=== PATIENT | female | born 1955 | race Caucasian/White ===

== ENCOUNTER 2025-07-27 11:20 | Outpatient (AMB) | payer MEDICARE, SELFPAY ==
--- NOTE | 2025-07-27 11:25 | MHC.OFFVIS ---
Intake Visit Reasons: 6m Allergies No Known Allergies Allergy (Verified 07/26/25 11:39) HPI Comments Details: 69 years old right-handed woman with past medical history of cervical spine surgery many years ago who lost her balance and fell forward around 2021. Top of her head struck something and she had large laceration requiring erasto. Right after that she noted the pain in both arms going to her hands. Pain was aching and burning type and present all the time. She has tried taking gabapentin, which did not help. She was given a prescription for duloxetine to try. She is presenting with bilateral hand and arm numbness, particularly nocturnal, leading to sleep disturbances. She reports awakening with numbness, often linked to sleeping on her side. The discomfort lessens with less arm activity during the day. Previous interventions, including a wrist injection, have been ineffective. Diagnosed with carpal tunnel syndrome, testing corroborated hand-related symptoms, with a history of neck surgery more than two decades ago. A dual factor possibly influences her symptoms, insinuating a double crush phenomenon. The patient is unwilling to undergo surgery absent effective conservative avenues, like nighttime wrist splints, which she has not used. [facility] Medical History (Updated 07/27/25 @ 11:28 by Tico Andrews MD) Carpal tunnel syndrome Cervical spondylitic cord compression Review of Systems Const Details: - Neurological: Reports numbness in both arms and hands, particularly at night. - Musculoskeletal: Reports bilateral arm pain, particularly after strenuous activity. - No other systems were discussed. Physical Exam Neuro Other: Mental Status: Alert and oriented to person, place, and time. Normal attention. Normal spontaneous speech, fluency, and comprehension. Cranial Nerves: CN II: Visual thomas full to confrontation, visual acuity intact. CN III, IV, : Pupils equal, round, reactive to light and accommodation. Extraocular movements are normal. CN V: Facial sensation is normal. CN VII: Facial movements symmetrical. CN VIII: Hearing intact to bedside conversation is normal. CN IX, X: Palate elevates symmetrically. CN XI: Shoulder shrug and head turn symmetrical. CN XII: Tongue midline without atrophy or fasciculations. Motor: Bulk and tone normal in all extremities. No significant muscle weakness in arms and legs. No drift. Reflexes: Deep tendon reflexes 2+ and symmetric. Plantar response down-going bilaterally. Coordination: Vrcbor-pd-ifsp and jyda-ph-ioxs testing normal. No dysmetria. Gait and Station: No obvious gait abnormality. No ataxia or instability. Sensory: Intact to light touch, pinprick, and vibration. Romberg is negative. Extrapyramidal: Full facial expressions and blinking. No rigidity. Movements are appropriate with no tremor or abnormality. Speech: Normal; no dysarthria or tremor. Assessment & Plan Assessment & Plan (1) Cervical spondylitic cord compression: Code(s): M47.12 - Other spondylosis with myelopathy, cervical region Category: Medical (2) Neuropathic pain: Comment: Meds tried: Gabapentin, duloxetine NCV/EMG UE (in office) Mild to moderate left and mild right median neuropathy across the Carpal tunnel. 10/07/24. Code(s): M79.2 - Neuralgia and neuritis, unspecified Category: Medical Plan I discussed with the patient the likely presence of bilateral carpal tunnel syndrome as the primary cause of her nocturnal arm and hand numbness. Despite previous wrist injection therapy, there remains a need for effective management, with wrist splinting indicated as the immediate step. The patient agreed to trial nighttime wrist splints. Regarding her history of neck surgery, I emphasized the possibility of a contributory process, potentially a double crush syndrome. To rule out significant cervical involvement and guide treatment further, I recommended obtaining a cervical MRI, which the patient agreed to pending confirmation of MRI compatibility. A future evaluation for potential surgical intervention was proposed should conservative therapies prove ineffective, emphasizing the low invasiveness of the surgical approach. Follow-up will depend on the outcome of the conservative measures and MRI findings. Orders: Orders MR cervical spine wo con Today M47.12 - Other spondylosis with myelopathy, cervical region Coding Level of Care Code Est Pt Level 4 (18785) Diagnoses Cervical spondylitic cord compression M47.12 Neuropathic pain M79.2
== END 2025-07-27 11:37 | disposition home or self-care (01) ==
LOC: HO.HSM 11:20
PROVIDERS: PCP Internal Medicine; Visit Provider Psychiatry & Neurology Neurology
DX: M47.12 Other spondylosis with myelopathy, cervical region (principal); M79.2 Neuralgia and neuritis, unspecified
CPT/HCPCS: 99214

== ENCOUNTER → 2025-07-27 11:20 | Outpatient (BNVA) | payer MEDICARE, SELFPAY | PROVIDERS: PCP Internal Medicine; Visit Provider Psychiatry & Neurology Neurology | DX: M47.12 Other spondylosis with myelopathy, cervical region (principal); M79.2 Neuralgia and neuritis, unspecified | CPT/HCPCS: 99212 ==

== ENCOUNTER → 2025-09-18 09:03 | Outpatient (BNV) | payer MEDICARE, SELFPAY | PROVIDERS: PCP Internal Medicine; Visit Provider General Practice | DX: M47.12 Other spondylosis with myelopathy, cervical region (principal); M50.30 Other cervical disc degeneration, unspecified cervical region | CPT/HCPCS: 72141 ==

== ENCOUNTER 2025-09-18 09:10 | Outpatient (REF) | payer MEDICARE, SELFPAY ==
--- NOTE | ~2025-09-18 | MR_ITS ---
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 Metallic artifact degrades images limiting interpretation. There is straightening of the normal cervical lordosis. Multilevel degenerative changes are present: C2-C3: No significant central canal or neural foraminal narrowing. C3-C4: Broad-based disc osteophyte complex. Borderline mild central canal stenosis. Mild left neural foraminal narrowing. No significant right neural foraminal stenosis. C4-C5: Broad-based disc osteophyte. Mild central canal narrowing. Moderate bilateral neural foraminal stenosis C5-C6: Limited by metallic artifact. C6-C7 and C7-T1: No significant central canal or neural foraminal narrowing. No acute fractures or pathologic bone lesions. Visualized intracranial contents are unremarkable. No cervical fluid collections or masses. Small focus of T2 bright cord signal intensity is present at the level of C3-C4. Remainder of the cervical cord is normal in size and signal intensity. Cervical vertebral body heights are moderately well-maintained. Visualized posterior fossa structures are unremarkable. Craniocervical junction is within normal limits. IMPRESSION: Small focus of T2 bright central cord signal intensity at C3-C4, likely focal gliosis. Multilevel cervical spine degenerative changes as above. This document has been electronically signed by: Ck Miller MD, PHD on 09/21/2025 04:37:37
--- OUTSIDE RECORDS SUMMARY | 2025-09-18 09:15 | XMS_ITS | Encounter Summary ---
Author Organization [facility] Prior to 08/13/2024 Address [address] [place] [address] Care Team Providers Care [employer] Hazmat Tanker Driver Name Role Phone Loren Vivar MD Primary Care Provide r Unavailable Jude Simeon DO Primary Care Provider UnavailWyatt Crook MD Unavailable [phone] Farhana Deluna MD Primary Care Provider [phone] Reason for Visit * Reason Onset Date Comments Shoulder Arthritis 08/23/2021 Encounter Details Date Type Department Care Team Description 08/23/2021 Telephone Adult [facility] - [address] [place] [address] Loren Vivar MD Shoulder Arthritis Social History Tobacco Use Types Packs/Day Years Used Date Smoking Tobacco: Every Day Cigarettes 1 45 Smokeless Tobacco: Never Alcohol Use Standard Drinks/Week Comments Yes 0 (1 standard drink = 0.6 oz pur e alcohol) social Alcohol Habits Answer Date Recorded How often do you have a drink containing alcohol ? 2-3 times a week 12/12/2022 How many drinks containing a lcohol do you have on a typical day when you are drinking? 1 or 2 12/12/2022 How often do you have six or more drinks on one occasion? Never 12/12/2022 Social Isolation Answer Date Recorded In a typical week, how many times do you talk on the phone with family, friends, or neighbors? More than three times a week 12/12/2022 How often do you get togethe r with friends or relatives? More than three times a week 12/12/2022 How often do you attend [facility] or yazdanism services? Never 12/12/2022 Do you belong to any clubs o r organizations such as baptist groups, unions, fraternal or athletic groups, or school groups? No 12/12/2022 How often do you attend meet ings of the clubs or organizations you belong to? Never 12/12/2022 Are you now , , , , never or living with a partner? 12/12/2022 Physical Activity Answer Date Recorded On average, how many days pe r week do you engage in moderate to strenuous exercise (like walking fast, running, jogging, dancing, swimming, biking, or other activities that cause a light or heavy sweat)? 7 days 12/12/2022 On average, how many minutes do you engage in exercise at this level? 30 min 12/12/2022 Stress Answer Date Recorded Do you feel stress - tense, restless, nervous, or anxious, or unable to sleep at night because your mind is troubled all the time - these days? Not at all 12/12/2022 Financial Resource Strain Answer Date R ecorded How hard is it for you to pa y for the very basics like food, housing, medical care, and heating? Not hard at all 12/12/2022 Food Insecurity Answer Date Recorded Within the past 12 months, y ou worried that your food would run out before you got money to buy more. Never true 12/12/2022 Within the past 12 months, t he food you bought just didn't last and you didn't have money to get more. Never true 12/12/2022 Transportation Needs Answer Date Record ed In the past 12 months, has l ack of transportation kept you from medical appointments or from getting medications? No 11/2022 In the past 12 months, has l ack of transportation kept you from meetings, work, or getting things needed for daily living? No 12/12/2022 Housing Stability Answer Date Recorded In the last 12 months, was t here a time when you were not able to pay the mortgage or rent on time? No 12/12/2022 In the last 12 months, how many places have you lived? 1 12/12/2022 In the last 12 months, was t here a time when you did not have a steady place to sleep or slept in a skilled nursing (including now)? No 12/12/2022 Sex Assigned at Date Recorded Not on file Job Start Date Occupation Industry Not on file Not on file Not on file documented as of this encounter Miscellaneous Notes * Telephone Encounter - Kira Melgar L.P.N. - 08/23/2021 11:03 AM EST Patient c/o r shoulder Patient states she threw something into compactor, but continues with pain, feels like it is in herjoint Requesting an evaluation Appointment scheduled 08/24 * Telephone Encounter - [place] - 08/23/2021 10:37 AM EST Symptoms patient is presenting: pt calling stating she injured shoulder three weeks ago pt is stillin pain For ALL patients calling to schedule any appointment (routine, sick visit, follow up, consult, etc.) in the outpatient setting please ask the following questions: ?? Do you have fever of higher than 101, sore throat with difficulty swallowing or severe shortnessof breath? NO If YES to any of these above symptoms, send a message to triage and do not book. Red dot. If no, an audio or video visit should be booked. ?? Have you had close contact with someone with Coronavirus in the last 14 days? NO ?? Have you traveled abroad? NO ?? Have you traveled recently to another state outside of [place], [place], [place], [place], [place], [place], [place]? NO o If yes, did you quarantine for 14 days or have a negative covid test? NO If yes to any of the above, patient is not to be scheduled in office until after 14 day quarantine or negative covid test. If pain or injury related was it due to an accident at work or from a motor vehicle accident? NO If yes, gather 3rd alliance party insurance information Date of accident/Injury: How long has patient had these symptoms?: PCP: LOREN VIVAR Payor: [employer] / Plan: O $15 [place] [id number] / Product Type: PPO [id number] documented in this encounter Plan of Treatment Not on file documented as of this encounter Visit Diagnoses Not on filedocumented in this encounter Care Teams Regional Company Hazmat Tanker Driver Relationship Specialty Start Date End Date Loren Vivar MD PCP - General Internal Medicine 06/25/21 1 11/28/20 Jude Simeon DO PCP - General Internal Medicine 09/28/21 04/18/24 Farhana Deluna MD [address] [place] [address] PCP - General Internal Medicine 04/19/24 Wyatt Nascimento MD [address] [place] [address] ORTHOPEDIC SURGERY 12/12/22 04/18/24 documented as of this encounter
--- OUTSIDE RECORDS SUMMARY | 2025-09-18 09:15 | XMS_ITS | Encounter Summary ---
Author Organization [facility] Prior to 08/13/[address] [place] [address] Care Team Providers Care Home Energy Consultant Name Role Phone Jude Simeon DO Primary Care Provider Wyatt Barton MD Unavailable [phone] Farhana Deluna MD Primary Care Provider [phone] Reason for Visit * Reason Onset Date Comments Surgery (Schedule) 06/20/2022 [facility] phone Encounter Details Date Type Department Care Team Description 06/20/2022 Telephone [facility] [address] [phone] Wyatt Nascimento MD [address] [place] [address] Surgery (Schedule) ([facility] phone) Social History Tobacco Use Types Packs/Day Years [...] week 12/12/2022 How often do you attend chur ch or presybeterian services? Never 12/12/2022 Do you belong to any clubs o r organizations such as roman catholic groups, unions, fraternal or athletic groups, or [...] place to sleep or slept in a mcfp (including now)? No 12/12/2022 Sex Assigned at Date Recorded Not on file Job Start Date Occupation Industry Not on file Not on file Not on file COVID-19 Exposure Response Date Recorded In the last 10 days, have yo u been in contact with someone who was confirmed or suspected to have Coronavirus/COVID-19? No / Unsure 06/19/2022 8:49 AM EDT documented as of this encounter Miscellaneous Notes * Telephone Encounter - Lillian Bello - 06/27/2022 10:25 AM EDT PA for surgery request faxed over to Tj at [facility]. Sent to fax: [phone]. * Telephone Encounter - Lillian Bello - 06/26/2022 1:54 PM EDT LMOM requesting a call back from Tj Munoz at [facility] with fax number to request PA for surgery. * Telephone Encounter - Lillian Bello - 06/20/2022 8:25 AM EDT Spoke with patient. Asked for [facility] case coordinator's phone number. Patient to call me back with information. As soon as we get this we can send request for approval for surgery. documented in this encounter Plan of Treatment Not on file documented as of this encounter Visit Diagnoses Not on filedocumented in this encounter Care Teams Home Energy Consultant Relationship Specialty Start Date End Date Jude Simeon DO PCP - General Internal Medicine 09/28/21 04/18/24 Farhana Deluna MD [address] [place] [address] PCP - General Internal Medicine 04/19/24 Wyatt Nascimento MD [address] [place] [address] ORTHOPEDIC SURGERY 12/12/22 04/18/24 documented as of this encounter
--- OUTSIDE RECORDS SUMMARY | 2025-09-18 09:15 | XMS_ITS | Encounter Summary ---
Author Organization [facility] Prior to 08/13/2024 Address [address] [place] [address] Care Team Providers Care Production Assembly Operator Name Role Phone Jude Simeon DO Primary Care Provider Wyatt Barton MD Unavailable [phone] Farhana Deluna MD Primary Care Provider [phone] Encounter Details Date Type Department Care Team Description 04/29/2022 [facility] - [facility] 175 [facility] [address] [place] [address] Angela Carrillo APRN Social History Tobacco Use Types Packs/Day Years [...] week 12/12/2022 How often do you attend [facility] or mosque services? Never 12/12/2022 Do you belong to any clubs o r organizations such as evangelical groups, unions, fraternal or athletic groups, or [...] place to sleep or slept in a fdc (including now)? No 12/12/2022 Sex Assigned at Date Recorded Not on file Job Start Date Occupation Industry Not on file Not on file Not on file COVID-19 Exposure Response Date Recorded In the last 10 days, have yo u been in contact with someone who was confirmed or suspected to have Coronavirus/COVID-19? No / Unsure 04/26/2022 8:02 AM EDT documented as of this encounter Plan of Treatment Not on file documented as of this encounter Visit Diagnoses Not on filedocumented in this encounter Care Teams Production Assembly Operator Relationship Specialty Start Date End Date Jude Simeon DO PCP - General Internal Medicine 09/28/21 04/18/24 Farhana Deluna MD [address] [place] [address] PCP - General Internal Medicine 04/19/24 Wyatt Nascimento MD [address] [address] ORTHOPEDIC SURGERY 12/12/22 04/18/24 documented as of this encounter
--- OUTSIDE RECORDS SUMMARY | 2025-09-18 09:15 | XMS_ITS | Encounter Summary ---
Author Organization [facility] Prior to 08/13/2024 Address [address] [place] [address] Care Team Providers Care Mechanical Technician Name Role Phone Nela Robledo MD Primary Care Provider Unavailable Loren Peña MD Primary Care Provide r Unavailable Jude Simeon DO Primary Care Provider UnavailWyatt Crook MD Unavailable [phone] Farhana Deluna MD Primary Care Provider [phone] Reason for Visit * Reason Comments E-prescribe Rx Request Encounter Details Date Type Department Care Team Description 12/15/2020 Refill Adult Medicine [address] [address] Nela Robledo MD E-prescribe Rx Request Social History Tobacco Use Types Packs/Day Years [...] often do you attend chur ch or sikhism services? Never 12/12/2022 Do you belong to any clubs o r organizations such as druze groups, unions, fraternal or athletic groups, or [...] place to sleep or slept in a group home (including now)? No 12/12/2022 Sex Assigned at Date Recorded Not on file Job Start Date Occupation Industry Not on file Not on file Not on file documented as of this encounter Miscellaneous Notes * Telephone Encounter - Feli Farmer - 12/15/2020 12:09 PM EST Patient would like script to be: E-PRESCRIBED/FAXED TO PHARMACY WHEN WAS THE PATIENT'S LAST APPOINTMENT IN ADULT MEDICINE? 07/03/20 WHEN WAS THE LAST TIME THE PATIENT SAW THEIR PCP? Same as above Does patient have an upcoming appointment? No-unable to reach left [facility] to call for appointment due to refill request. Appt due 10/02/21 (THE MEDICATION REQUESTED IS ON THE MED LIST ABOVE) All of the medications requested were on the CURRENT MEDS list Did you check the Pharmacy information above?: YES Patient wants: 30 -day supply Is this a mail order prescription request ? NO If the refill is from a FAXED refill request what is the RX # listed on the fax? N/A Patients current insurance carrier is: Payor: [employer] / Plan: [facility]PO [facility] [id number] / Product Type: POS [id number]-Eydrnps documented in this encounter Plan of Treatment Not on file documented as of this encounter Visit Diagnoses Not on filedocumented in this encounter Care Teams Mechanical Technician Relationship Specialty Start Date End Date Chapin-Nela Vincent MD PCP - General Internal Medicine 11/22/1510/02 Loren Peña MD PCP - General Internal Medicine 06/25/21 1 11/28/20 Jude Simeon DO PCP - General Internal Medicine 09/28/21 04/18/24 Farhana Deluna MD [address] [place] [address] PCP - General Internal Medicine 04/19/24 Wyatt Nascimento MD [address] [place] [address] ORTHOPEDIC SURGERY 12/12/22 04/18/24 documented as of this encounter
--- OUTSIDE RECORDS SUMMARY | 2025-09-18 09:15 | XMS_ITS | Encounter Summary ---
Author Organization [facility] Prior to 08/13/2024 Address [address] [place] [address] Care Team Providers Care Fall Internship Name Role Phone Nela Robledo MD Primary Care Provider Unavailable Loren Peña MD Primary Care Provide r Unavailable Jude Simeon DO Primary Care Provider UnavailWyatt Crook MD Unavailable [phone] Farhana Deluna MD Primary Care Provider [phone] Encounter Details Date Type Department Care Team Description 10/27/2020 Orders Only Medical Records [address] [place] [address] Nela Robledo MD Social History Tobacco Use Types Packs/Day Years [...] week 12/12/2022 How often do you attend [facility] or cheondoism services? Never 12/12/2022 Do you belong to any clubs o r organizations such as rastafarian groups, unions, fraternal or athletic groups, or [...] place to sleep or slept in a custodial (including now)? No 12/12/2022 Sex Assigned at Date Recorded Not on file Job Start Date Occupation Industry Not on file Not on file Not on file documented as of this encounter Plan of Treatment Not on file documented as of this encounter Procedures Procedure Name Priority Date/Time Associated Diagnosis Comments OUTSIDE MAMMO Routine 10/27/2020 documented in this encounter Results * OUTSIDE MAMMO (10/27/2020) Nela Robledo MD RADIOLOGY documented in this encounter Visit Diagnoses Not on filedocumented in this encounter Care Teams Fall Internship Relationship Specialty Start Date End Date Nela Robledo MD PCP - General Internal Medicine 11/22/1510/02 Loren Peña MD PCP - General Internal Medicine 06/25/21 1 11/28/20 Jude Simeon DO PCP - General Internal Medicine 09/28/21 04/18/24 Farhana Deluna MD [address] [place] [address] PCP - General Internal Medicine 04/19/24 Wyatt Nascimento MD [address] [place] [address] ORTHOPEDIC SURGERY 12/12/22 04/18/24 documented as of this encounter
--- OUTSIDE RECORDS SUMMARY | 2025-09-18 09:15 | XMS_ITS | Encounter Summary ---
Author Organization [facility] Prior to 08/13/2024 Address [address] [place] [address] Care Team Providers Care Multimedia Specialist Name Role Phone Pickford-Nela Vincent MD Primary Care Provider Unavailable Loren Peña MD Primary Care Provide r Unavailable Jude Simeon DO Primary Care Provider UnavailWyatt Crook MD Unavailable [phone] Farhana Deluna MD Primary Care Provider [phone] Encounter Details Date Type Department Care Team Description 11/20/2020 Infrastructure Administrator Report Medical Records [address] [place], [place] [address] [place] [address] Social History Tobacco Use Types Packs/Day Years [...] week 12/12/2022 How often do you attend [facility] or protestant services? Never 12/12/2022 Do you belong to any clubs o r organizations such as restoration groups, unions, fraternal or athletic groups, or [...] on filedocumented in this encounter Care Teams Multimedia Specialist Relationship Specialty Start Date End Date Pickford-Nela Vincent MD PCP - General Internal Medicine 11/22/1510/02 Loren Peña MD PCP - General Internal Medicine 06/25/21 1 11/28/20 Jude Simeon DO PCP - General Internal Medicine 09/28/21 04/18/24 Farhana Deluna MD [address] [place] [address] PCP - General Internal Medicine 04/19/24 Wyatt Nascimento MD [address] [place] [address] ORTHOPEDIC SURGERY 12/12/22 04/18/24 documented as of this encounter
--- OUTSIDE RECORDS SUMMARY | 2025-09-18 09:15 | XMS_ITS | Encounter Summary ---
Author Organization [facility] Prior to 08/13/2024 Address [address] [place] [address] Care Team Providers Care Underwriting Sales Representative Name Role Phone Farhana Deluna MD Primary Care Provider [phone] Encounter Details Date Type Department Care Team Description 08/03/2024 Type Bar And Segment Assembler Report Medical Records [address] [place] [address] [facility] [address] [place] [address] Social History Tobacco Use Types Packs/Day Years [...] often do you attend chur ch or methodist services? Never 12/12/2022 Do you belong to any clubs o r organizations such as protestant groups, unions, fraternal or athletic groups, or [...] place to sleep or slept in a fci (including now)? No 12/12/2022 Sex Assigned at Date Recorded Not on file Job Start Date Occupation Industry Not on file Not on file Not on file documented as of this encounter Plan of Treatment Not on file documented as of this encounter Visit Diagnoses Not on filedocumented in this encounter Care Teams Underwriting Sales Representative Relationship Specialty Start Date End Date Farhana Deluna MD [address] [place] [address] PCP - General Internal Medicine 04/19/24 documented as of this encounter
--- OUTSIDE RECORDS SUMMARY | 2025-09-18 09:16 | XMS_ITS | Encounter Summary ---
Author Organization [facility] Prior to 08/13/2024 Address [facility] [place] [address] Care Team Providers Care First Line Supervisor Name Role Phone Jude Simeon DO Primary Care Provider Wyatt Barton MD Unavailable [phone] Farhana Deluna MD Primary Care Provider [phone] Reason for Visit * Reason Onset Date Comments Medication 07/07/2022 Planned Post-op Encounter Details Date Type Department Care Team Description 07/07/2022 Telephone [facility] Medical [facility] - [facility] 175 [facility] [address] [place] [phone] Angela Carrillo APRN Medication (Planned Post-op) Social History Tobacco Use Types Packs/Day Years [...] often do you attend chur ch or yarsanism services? Never 12/12/2022 Do you belong to any clubs o r organizations such as pentecostal groups, unions, fraternal or athletic groups, or [...] place to sleep or slept in a residential (including now)? No 12/12/2022 Sex Assigned at [...] on filedocumented in this encounter Care Teams First Line Supervisor Relationship Specialty Start Date End Date Jude Simeon DO PCP - General Internal Medicine 09/28/21 04/18/24 Farhana Deluna MD [address] [place] [address] PCP - General Internal Medicine 04/19/24 Wyatt Nascimento MD [address] [place] [address] ORTHOPEDIC SURGERY 12/12/22 04/18/24 documented as of this encounter
--- OUTSIDE RECORDS SUMMARY | 2025-09-18 09:16 | XMS_ITS | Encounter Summary ---
Author Organization [facility] Prior to 08/13/[address] [place] [id number] Care Team Providers Care Leather Cleaner Name Role Phone Jude Simeon DO Primary Care Provider Wyatt Barton MD Unavailable [phone] Farhana Deluna MD Primary Care Provider [phone] Encounter Details Date Type Department Care Team Description 09/04/2022 SCAN [facility] [address] [facility] [address] [place] [phone] Wyatt Nascimento MD [address] [facility] [address] [place] [address] Social History Tobacco Use Types Packs/Day Years [...] any clubs o r organizations such as denominational groups, unions, fraternal or athletic groups, or [...] suspected to have Coronavirus/COVID-19? No / Unsure 08/23/2022 8:17 AM EST documented as of this encounter Plan of Treatment Not on file documented as of this encounter Visit Diagnoses Not on filedocumented in this encounter Care Teams Leather Cleaner Relationship Specialty Start Date End Date Jude Simeon DO PCP - General Internal Medicine 09/28/21 04/18/24 Farhana Deluna MD [address] [place] [address] PCP - General Internal Medicine 04/19/24 Wyatt Nascimento MD [address] [place] [address] ORTHOPEDIC SURGERY 12/12/22 04/18/24 documented as of this encounter
--- OUTSIDE RECORDS SUMMARY | 2025-09-18 09:16 | XMS_ITS | Encounter Summary ---
Author Organization [facility] Prior to 08/13/2024 Address [address] [address] [place] [address] Care Team Providers Care Tester [employer] Name Role Phone Jude Simeon DO Primary Care Provider Wyatt Barton MD Unavailable [phone] Farhana Deluna MD Primary Care Provider [phone] Encounter Details Date Type Department Care Team Description 04/09/2023 Orders Only [facility] Lung Screening Program [place] [address] [facility] [address] [place] [phone] Sugar Mark MD [address] [facility] [place] [address] [place] [id number] History of tobacco abuse Social History Tobacco Use Types Packs/Day Years [...] any clubs o r organizations such as jehovah's witness groups, unions, fraternal or athletic groups, or [...] place to sleep or slept in a retirement (including now)? No 12/12/2022 Sex Assigned at Date Recorded Not on file Job Start Date Occupation Industry Not on file Not on file Not on file COVID-19 Exposure Response Date Recorded In the last 10 days, have yo u been in contact with someone who was confirmed or suspected to have Coronavirus/COVID-19? No / Unsure 04/09/2023 9:38 AM EDT documented as of this encounter Plan of Treatment Not on file documented as of this encounter Procedures Procedure Name Priority Date/Time Associated Diagnosis Comments CT LOW DOSE LUNG SCREEN ANNUAL Routine 04/08/2023 History of tobacco abuse documented in this encounter Results * CT LOW DOSE LUNG SCREEN ANNUAL (04/08/2023) Sugar Mark MD CT SCANS documented in this encounter Visit Diagnoses Diagnosis History of tobacco abuse Personal history of tobacco use, presenting hazards to health documented in this encounter Care Teams Tester [employer] Relationship Specialty Start Date End Date Jude Simeon DO PCP - General Internal Medicine 09/28/21 04/18/24 Farhana Deluna MD [address] [place] [address] PCP - General Internal Medicine 04/19/24 Wyatt Nascimento MD [address] [address] ORTHOPEDIC SURGERY 12/12/22 04/18/24 documented as of this encounter
--- OUTSIDE RECORDS SUMMARY | 2025-09-18 09:16 | XMS_ITS | Encounter Summary ---
Author Organization [facility] Prior to 08/13/2024 Address [address] [place] [address] Care Team Providers Care Fusing Machine Tender Name Role Phone Nela Robledo MD Primary Care Provider Unavailable Loren Peña MD Primary Care Provide r Unavailable Jude Simeon DO Primary Care Provider UnavailWyatt Crook MD Unavailable [phone] Farhana Deluna MD Primary Care Provider [phone] Reason for Visit * Reason Onset Date Comments medication problems 12/08/2019 Encounter Details Date Type Department Care Team Description 12/08/2019 Telephone Adult [facility] - [address] [address] Nela Robledo MD medication problems Social History Tobacco Use Types Packs/Day Years [...] often do you attend chur ch or confucianism services? Never 12/12/2022 Do you belong to any clubs o r organizations such as taoist groups, unions, fraternal or athletic groups, or [...] place to sleep or slept in a jail (including now)? No 12/12/2022 Sex Assigned at Date Recorded Not on file Job Start Date Occupation Industry Not on file Not on file Not on file documented as of this encounter Miscellaneous Notes * Telephone Encounter - Nilda Winters M.A. - 12/08/2019 3:09 PM EST Contacted pharmacy, they stated they have this in stock and pt has 2 refills on it left, pt was notified. * Telephone Encounter - Antonette Cormier - 12/08/2019 3:03 PM EST Who is calling? The patient Name of the medication hydrochlorothiazide (HYDRODIURIL) 25 MG tablet What is the specific problem or interaction? Pharmacy does not have this medication in stock needs an alternative sent. If the patient is having a problem with taking the med - how long has the problem been going on? documented in this encounter Plan of Treatment Not on file documented as of this encounter Visit Diagnoses Not on filedocumented in this encounter Care Teams Fusing Machine Tender Relationship Specialty Start Date End Date [place]-Nela Vincent MD PCP - General Internal Medicine 11/22/1510/02 Loren Peña MD PCP - General Internal Medicine 06/25/21 1 11/28/20 Jude Simeon DO PCP - General Internal Medicine 09/28/21 04/18/24 Farhana Deluna MD [address] [place] [address] PCP - General Internal Medicine 04/19/24 Wyatt Nascimento MD [address] [place] [address] ORTHOPEDIC SURGERY 12/12/22 04/18/24 documented as of this encounter
--- OUTSIDE RECORDS SUMMARY | 2025-09-18 09:16 | XMS_ITS | Encounter Summary ---
Author Organization [facility] Prior to 08/13/2024 Address [address] [place] [address] Care Team Providers Care Surgical Endoscopist Name Role Phone Jose Alberto-Nela Vincent MD Primary Care Provider Unavailable Loren Peña MD Primary Care Provide r Unavailable Jude Simeon DO Primary Care Provider UnavailWyatt Crook MD Unavailable [phone] Farhana Deluna MD Primary Care Provider [phone] Reason for Visit * Reason Onset Date Comments refill request 08/31/2019 Encounter Details Date Type Department Care Team Description 08/31/2019 Refill Gastroenterology [address] [phone] Artemio Benoit MD refill request Social History Tobacco Use Types Packs/Day Years [...] often do you attend chur ch or rastafarian services? Never 12/12/2022 Do you belong to any clubs o r organizations such as restorationist groups, unions, fraternal or athletic groups, or [...] place to sleep or slept in a snf (including now)? No 12/12/2022 Sex Assigned at Date Recorded Not on file Job Start Date Occupation Industry Not on file Not on file Not on file documented as of this encounter Plan of Treatment Not on file documented as of this encounter Visit Diagnoses Not on filedocumented in this encounter Care Teams Surgical Endoscopist Relationship Specialty Start Date End Date [place]-Nela Vincent MD PCP - General Internal Medicine 11/22/1510/02 Loren Peña MD PCP - General Internal Medicine 06/25/21 1 11/28/20 Jude Simeon DO PCP - General Internal Medicine 09/28/21 04/18/24 Farhana Deluna MD [address] [place] [id number] PCP - General Internal Medicine 04/19/24 Wyatt Nascimento MD [address] [place] [address] ORTHOPEDIC SURGERY 12/12/22 04/18/24 documented as of this encounter
== END 2025-09-18 09:11 | disposition home or self-care (01) ==
LOC: HO.MRI 09:10
PROVIDERS: PCP Internal Medicine; Visit Provider Psychiatry & Neurology Neurology
DX: M47.12 Other spondylosis with myelopathy, cervical region (principal)
CPT/HCPCS: 72141